=== PATIENT | male | born 1995 ===

== ENCOUNTER 2021-11-03 06:55 | Observation (INO) ==
[2021-11-03] MEDS ORDERED: SODIUM CHLORIDE 0.9% 1,000 ML IV STA (07:46)
[2021-11-03] MEDS ORDERED: ACETAMINOPHEN 325 MG TABLET PO PRN (08:17)
[2021-11-03] MEDS ORDERED: ONDANSETRON 4 MG/2 ML VIAL IV PRN (08:17)
[2021-11-03] MEDS ORDERED: LACTATED RINGERS 1,000 ML IV SCH (08:30)
[2021-11-03] MEDS ORDERED: PANTOPRAZOLE 40 MG TABLET PO SCH (09:00)
[2021-11-03] MEDS ORDERED: PANTOPRAZOLE 40 MG VIAL IV ONE (09:01)
[2021-11-03] MEDS ORDERED: PANTOPRAZOLE 40 MG VIAL IV STA (09:07)
[2021-11-03] MEDS ORDERED: lisinopriL 20 MG TABLET PO SCH (11:30)
[2021-11-03 12:14] VITALS: BP 119/73
== END 2021-11-03 15:37 | disposition home or self-care (01) ==
LOC: N.EDINP 06:55 → N.ED 06:55 → N.2W 09:37
PROVIDERS: ADMIT Surgery; ATTEND Surgery